=== PATIENT | male | born 1955 | race Hispanic/Latino ===

== ENCOUNTER 2023-04-28 12:46 | Emergency (ER) | payer BC, OTHER ==
[~2023-04-28] VITALS: Ht 160 cm; Wt 67.1 kg
[~2023-04-28 12:46] MED LIST: AMLODIPINE BESY10 MG PO; ATORVASTATIN CA20 MG PO; HYDROCHLOROTHIA25 MG PO; METOPROLOL PO; METOPROLOL SUCC50 MG PO; [UNRECOGNIZED DRUG - OTHER] PO
[2023-04-28 13:14] LABS: BASOPHILS # (AUTO) 0.1 (0.0-0.1); BASOPHILS % 0.4 % (0.0-1.0); HEMATOCRIT 44.8 % (38.2-49.6); HEMOGLOBIN 15.5 g/dL (14.0-18.0); LYMPHOCYTES # (AUTO) 2.3 (1.0-3.2); LYMPHOCYTES % 15.9 % (18.0-39.1); MEAN CORPUSCULAR HEMOGLOBIN 30.6 pg (28-32); MEAN CORPUSCULAR HGB CONC 34.6 g/dL (31-35); MEAN CORPUSCULAR VOLUME 88.4 fL (81-99); MONOCYTES # (AUTO) 0.3 (0.2-0.8); MONOCYTES % 2.3 % (4.4-11.3); NEUTROPHILS # (AUTO) 11.8 (2.1-6.9); NEUTROPHILS % 80.9 % (38.7-80.0); PLATELET COUNT 206 x10e3/uL (140-360); RED BLOOD COUNT 5.07 x10e6/uL (4.3-5.7); RED CELL DISTRIBUTION WIDTH 13.6 % (11.7-14.4)
[2023-04-28 13:24] LABS: INR 0.94; PARTIAL THROMBOPLASTIN TIME 27.5 seconds (23.8-35.5); PROTHROMBIN TIME 13.1 seconds (11.9-14.5)
[2023-04-28 13:34] LABS: ALANINE AMINOTRANSFERASE 33 IU/L (0-55); ALBUMIN 4.5 g/dL (3.5-5.0); ALBUMIN/GLOBULIN RATIO 1.1 (0.8-2.0); ALKALINE PHOSPHATASE 102 IU/L (40-150); BLOOD UREA NITROGEN 58 mg/dL (7-26); BUN/CREATININE RATIO 19 (6-25); CALCIUM 9.7 mg/dL (8.4-10.2); CARBON DIOXIDE 24 mmol/L (22-29); CHLORIDE 105 mmol/L (98-107); CREATINE KINASE 134 IU/L (30-200); CREATININE, SERUM 3.07 mg/dL (0.72-1.25); GLUCOSE 169 mg/dL (74-118); MAGNESIUM 2.1 MG/DL (1.3-2.1); SODIUM 143 mmol/L (136-145)
[2023-04-28] MEDS ORDERED: ALBUTEROL/IPRATROPIUM 3 ML NEB ONE (13:42)
[2023-04-28] MEDS ORDERED: ALBUTEROL/IPRATROPIUM 3 ML NEB NEB ONE (13:45)
[2023-04-28 13:46] VITALS: PULSE 61; RESP 20; O2SAT 95
[2023-04-28 14:00] VITALS: PULSE 70; RESP 18
[2023-04-28] MEDS ORDERED: ASPIRIN 300 MG SUPP PR STA (15:06)
[2023-04-28 16:25] LABS: CLARITY,URINE CLEAR (CLEAR); COLOR,URINE YELLOW (YELLOW); LEUKOCYTE ESTERASE ,URINE NEGATIVE (NEGATIVE)
[2023-04-28 16:26] LABS: KETONES,URINE NEGATIVE (NEGATIVE); NITRITE,URINE NEGATIVE (NEGATIVE); PROTEIN,URINE DIPSTICK >=300 (NEGATIVE); URINE UROBILINOGEN 0.2 mg/dL (0.2 - 1)
[2023-04-28 16:38] LABS: BACTERIA,URINE FEW /HPF; EPITHELIAL CELLS,URINE FEW /LPF; HYALINE CASTS 0-1 (0-1); RBC,URINE 0-5 /HPF (0-5); WBC,URINE (MAN) 0-5 /HPF (0-5)
[2023-04-28 16:39] VITALS: O2SAT 95
== END 2023-04-28 16:35 | disposition other institution (70) ==
LOC: ER 12:53
DX: R29.810 Facial weakness (principal); R13.10 Dysphagia, unspecified; Z20.822 Contact with and (suspected) exposure to COVID-19; E11.65 Type 2 diabetes mellitus with hyperglycemia; I10 Essential (primary) hypertension; E78.5 Hyperlipidemia, unspecified; Z86.73 Personal history of transient ischemic attack (TIA), and cerebral infarction without residual deficits
CPT/HCPCS: 0223U; 36415; 70450; 71045; 80053; 81001; 82550; 82553; 82948; 83735; 83880; 84484; 85025; 85610; 85730; 87086; 93005; 94640; 94799; 99284